=== PATIENT | female | born 2005 | race Two or more races ===

== ENCOUNTER → 2024-07-09 | Outpatient (CLI) | payer BC ==
[2024-07-09 15:57] LABS: HEMATOCRIT 39.6 % (36.0-47.0); HEMOGLOBIN 13.4 g/dl (12.0-15.5); MEAN CORPUSCULAR HEMOGLOBIN 31.2 pg (27.0-33.0); MEAN CORPUSCULAR HGB CONC 33.8 g/dl (32.0-36.5); MEAN CORPUSCULAR VOLUME 92.1 fl (80.0-96.0); PLATELET COUNT, AUTOMATED 301 10^3/uL (150-450); WHITE BLOOD COUNT 10.4 10^3/uL (4.0-10.0)
[2024-07-09 17:04] LABS: HIV 1&2 SCREEN NEGATIVE (NEGATIVE)
[2024-07-09 17:12] LABS: HEPATITIS C VIRUS ABY INDEX 0.04 INDEX (<0.8)
[2024-07-09 17:26] LABS: GC DNA AMPLIFICATION NEGATIVE (NEGATIVE)
[2024-07-10 16:30] LABS: Trichomonas vaginalis (AMP) NOT DETECTED (NEGATIVE)
== END ==
LOC: M PLALAB 14:14
PROVIDERS: ATTEND Obstetrics & Gynecology
DX: Z34.01 Encounter for supervision of normal first pregnancy, first trimester (principal); Z3A.00 Weeks of gestation of pregnancy not specified

== ENCOUNTER → 2024-09-12 | Outpatient (REF) | payer BC | LOC: M PLALAB 10:54 | PROVIDERS: ATTEND Advanced Practice Midwife | DX: Z34.02 Encounter for supervision of normal first pregnancy, second trimester (principal) ==

== ENCOUNTER → 2024-09-22 | Outpatient (CLI) | payer BC | LOC: M WHC 06:57 | PROVIDERS: ATTEND Specialist | DX: Z34.02 Encounter for supervision of normal first pregnancy, second trimester (principal); Z3A.21 21 weeks gestation of pregnancy ==

== ENCOUNTER 2024-10-09 16:32 | Emergency (ER) | payer BC ==
[2024-10-09] MEDS ORDERED: PRENTAB9 PO ×2 (16:52)
[2024-10-09] MEDS ORDERED: ACET-907 PO (16:53)
[2024-10-09] MEDS ORDERED: MACR100C43 PO (18:37)
== END 2024-10-09 16:36 | disposition admitted as inpatient to this hospital (09) ==
LOC: M ED 16:32
DX: Z53.21 Procedure and treatment not carried out due to patient leaving prior to being seen by health care provider (principal)

== ENCOUNTER 2024-10-09 16:40 | Outpatient (CLI) | payer BC ==
[~2024-10-09] VITALS: Ht 162.6 cm; Wt 68.3 kg
[2024-10-09] MEDS ORDERED: PRENTAB9 PO ×2 (16:52)
[2024-10-09 16:53] VITALS: BP 111/71
[2024-10-09] MEDS ORDERED: ACET-907 PO (16:53)
[2024-10-09] MEDS: ACETAMINOPHEN 500 MG TAB PO ONE (18:05)
[2024-10-09 18:26] LABS: KETONE, URINE AUTO RFX NEGATIVE (NEGATIVE); LEUKOCYTE ESTERASE UR AUTO RFX 2+ (NEGATIVE); MUCUS, URINE RFX SMALL (NEGATIVE); NITRITE, URINE AUTO RFX NEGATIVE (NEGATIVE); RBC, URINE AUTO RFX 1 /HPF (0-3); SQUAM EPITHELIAL CELL UR AURFX 3 /HPF (0-6); WBC, URINE AUTO RFX 9 /HPF (0-3)
[2024-10-09] MEDS ORDERED: MACR100C43 PO (18:37)
[2024-10-09] MEDS: NITROFURANTOIN 100 MG CAP PO ONE (18:53)
== END 2024-10-09 18:55 | disposition home or self-care (01) ==
LOC: M LDO 16:40
PROVIDERS: ATTEND Obstetrics & Gynecology
DX: O23.42 Unspecified infection of urinary tract in pregnancy, second trimester (principal); O34.12 Maternal care for benign tumor of corpus uteri, second trimester; Z3A.24 24 weeks gestation of pregnancy
CPT/HCPCS: 59025; 81001; 87086; G0463

== ENCOUNTER → 2024-10-24 | Outpatient (CLI) | payer BC ==
[~2024-10-24] MED LIST: ACET-907 PO; MACR100C43 PO; PRENTAB9 PO
[2024-10-24 17:41] LABS: PLATELET COUNT, AUTOMATED 275 10^3/uL (150-450)
[2024-10-24 18:02] LABS: GLUCOSE CHALLENGE TEST 1 HOUR 114 MG/DL (LESS THAN 140)
[2024-10-24 18:25] LABS: Trichomonas vaginalis (AMP) NOT DETECTED (NEGATIVE)
[2024-10-24 18:30] LABS: HIV 1&2 SCREEN NEGATIVE (NEGATIVE)
[2024-10-24 18:38] LABS: HEPATITIS C VIRUS ABY INDEX < 0.02 INDEX (<0.8)
[2024-10-24 18:49] LABS: GC DNA AMPLIFICATION NEGATIVE (NEGATIVE)
== END ==
LOC: M PLALAB 14:03
PROVIDERS: ATTEND Obstetrics & Gynecology
DX: Z34.80 Encounter for supervision of other normal pregnancy, unspecified trimester (principal)

== ENCOUNTER → 2024-11-18 | Outpatient (CLI) | payer BC | LOC: M WHC 12:07 | PROVIDERS: ATTEND Obstetrics & Gynecology | DX: Z34.80 Encounter for supervision of other normal pregnancy, unspecified trimester (principal) ==

== ENCOUNTER 2024-11-24 10:51 | Outpatient (CLI) | payer BC ==
[~2024-11-24] VITALS: Ht 162.6 cm; Wt 73.4 kg
[2024-11-24] MEDS ORDERED: HOME MED LIST COMPLETE! XX SCH (11:10)
[2024-11-24 11:12] VITALS: BP 103/66; O2SAT 97
[2024-11-24] MEDS: METOCLOPRAMIDE 10 MG TAB PO ONE (11:41)
[2024-11-24] MEDS: ACETAMINOPHEN 500 MG TAB PO ONE (11:41)
[2024-11-24 12:53] VITALS: BP 104/60
[2024-11-24] MEDS: ONDANSETRON 4MG TAB PO ONE (13:06)
[2024-11-24 14:15] VITALS: O2SAT 99
[2024-11-24 14:16] VITALS: BP 95/59
[2024-11-24 14:17] VITALS: BP 110/68
[2024-11-24] MEDS ORDERED: FIOR1CAP PO (14:21)
== END 2024-11-24 14:33 | disposition home or self-care (01) ==
LOC: M LDO 10:51
PROVIDERS: ATTEND Advanced Practice Midwife
DX: O99.353 Diseases of the nervous system complicating pregnancy, third trimester (principal); O99.820 Streptococcus B carrier state complicating pregnancy; G43.009 Migraine without aura, not intractable, without status migrainosus; B95.1 Streptococcus, group B, as the cause of diseases classified elsewhere; Z3A.30 30 weeks gestation of pregnancy
CPT/HCPCS: 59025; G0463

== ENCOUNTER → 2024-12-02 | Outpatient (CLI) | payer BC ==
[~2024-12-02] MED LIST changes: +FIOR1CAP PO
== END ==
LOC: M RAD 08:34
PROVIDERS: ATTEND Obstetrics & Gynecology
DX: Z34.80 Encounter for supervision of other normal pregnancy, unspecified trimester (principal)